=== PATIENT | male | born 1950 | race Caucasian/White ===

== ENCOUNTER 2021-06-28 16:43 | Emergency (ER) | payer MEDICARE, OTHER ==
[2021-06-28 17:15] VITALS: BP 154/87; PULSE 66
== END 2021-06-28 18:38 | disposition home or self-care (01) ==
LOC: JD.ED 16:43
DX: R10.11 Right upper quadrant pain (principal); B02.9 Zoster without complications; I10 Essential (primary) hypertension; M10.9 Gout, unspecified; E66.9 Obesity, unspecified; Z68.30 Body mass index [BMI] 30.0-30.9, adult; Z79.899 Other long term (current) drug therapy
CPT/HCPCS: 36415; 80053; 85025; 99283

== ENCOUNTER 2023-01-31 07:23 | Day surgery (SDC) | payer MEDICARE, OTHER ==
[2023-01-31] MEDS ORDERED: Propofol 200 MG/20 ML SDV ONE (08:29)
[2023-01-31] MEDS ORDERED: Lidocaine 1% 8 ML ONE (08:29)
[2023-01-31] MEDS ORDERED: Lactated Ringers 1,000 ML IV SCH (08:30)
[2023-01-31] MEDS ORDERED: fentaNYL 100 MCG/2 ML SDV ONE (08:30)
[2023-01-31 10:11] VITALS: BP 107/71; PULSE 58
== END 2023-01-31 10:28 | disposition home or self-care (01) ==
LOC: JD.SDS 07:23
PROVIDERS: ATTEND Surgery
DX: Z12.11 Encounter for screening for malignant neoplasm of colon (principal); D12.2 Benign neoplasm of ascending colon; D12.0 Benign neoplasm of cecum; D12.3 Benign neoplasm of transverse colon; D12.4 Benign neoplasm of descending colon; D12.5 Benign neoplasm of sigmoid colon; D12.7 Benign neoplasm of rectosigmoid junction; I10 Essential (primary) hypertension; E11.9 Type 2 diabetes mellitus without complications; E66.9 Obesity, unspecified; Z68.42 Body mass index [BMI] 45.0-49.9, adult; G47.33 Obstructive sleep apnea (adult) (pediatric); E78.00 Pure hypercholesterolemia, unspecified; Z79.899 Other long term (current) drug therapy
CPT/HCPCS: 45380; 45385; J2704; J3010; J7120; 88305; J3490

== ENCOUNTER 2023-10-17 11:25 | Day surgery (SDC) | payer MEDICARE, OTHER ==
[~2023-10-17 11:25] MED LIST: Sodium Chloride 0.9% 10 ML Syringe FLUSH PRN; Sodium Chloride 0.9% 10 ML Syringe FLUSH SCH
[2023-10-17] MEDS: Lactated Ringers 1,000 ML IV SCH (11:50)
[2023-10-17] MEDS ORDERED: fentaNYL 100 MCG/2 ML SDV IVPUSH PRN (12:30)
[2023-10-17] MEDS ORDERED: Ondansetron 4 MG/2 ML SDV IVPUSH PRN (12:30)
[2023-10-17] MEDS ORDERED: HYDROmorphone 0.5 MG/0.5 ML Syringe IVPUSH PRN (12:30)
[2023-10-17] MEDS ORDERED: Propofol 200 MG/20 ML SDV ONE ×4 (13:02→13:49)
[2023-10-17] MEDS ORDERED: Lidocaine 2% 5 ML SDV ONE (13:03)
[2023-10-17 15:28] VITALS: BP 130/70; PULSE 60
== END 2023-10-17 14:43 | disposition home or self-care (01) ==
LOC: JD.SDS 11:25
PROVIDERS: ATTEND Surgery
DX: Z12.11 Encounter for screening for malignant neoplasm of colon (principal); D12.0 Benign neoplasm of cecum; D12.3 Benign neoplasm of transverse colon; D12.4 Benign neoplasm of descending colon; K63.5 Polyp of colon; I10 Essential (primary) hypertension; R73.03 Prediabetes; G47.33 Obstructive sleep apnea (adult) (pediatric); E78.00 Pure hypercholesterolemia, unspecified; E11.9 Type 2 diabetes mellitus without complications; E66.9 Obesity, unspecified; Z68.41 Body mass index [BMI] 40.0-44.9, adult; Z86.010 Personal history of colon polyps; Z80.0 Family history of malignant neoplasm of digestive organs
CPT/HCPCS: 45380; 88305; J2704; J7120; 00811; 99100; J3490

== ENCOUNTER 2024-12-24 06:42 | Day surgery (SDC) | payer MEDICARE, OTHER ==
[~2024-12-24 06:42] MED LIST changes: +Propofol 200 MG/20 ML SDV ONE
[2024-12-24] MEDS: Lactated Ringers 1,000 ML IV SCH (07:00)
[2024-12-24] MEDS ORDERED: Propofol 200 MG/20 ML SDV ONE (08:15)
[2024-12-24 10:14] VITALS: BP 132/78; PULSE 70
== END 2024-12-24 09:18 | disposition home or self-care (01) ==
LOC: JD.SDS 06:42
PROVIDERS: ATTEND Surgery
DX: Z12.11 Encounter for screening for malignant neoplasm of colon (principal); D12.0 Benign neoplasm of cecum; D12.3 Benign neoplasm of transverse colon; D12.5 Benign neoplasm of sigmoid colon; E11.9 Type 2 diabetes mellitus without complications; I10 Essential (primary) hypertension; E78.00 Pure hypercholesterolemia, unspecified; Z80.0 Family history of malignant neoplasm of digestive organs; Z86.0101 Personal history of adenomatous and serrated colon polyps; Z79.899 Other long term (current) drug therapy
CPT/HCPCS: 45380; 45385; J2704; J7120; 00811; 99100